=== PATIENT | male | born 1970 | race Caucasian/White ===

== ENCOUNTER 2019-01-22 14:43 | Emergency (ER) | payer OTHER ==
[2019-01-22] MEDS ORDERED: Ketorolac 60 MG/2 ML SDV IM ONE (14:58)
[2019-01-22] MEDS ORDERED: Acetaminophen/HYDROcodone 325-5 MG Tab PO ONE (15:00)
--- NOTE | 2019-01-22 16:44 | EDM.PDOC ---
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 Right hand Pain Score (Numeric/FACES): 8 - Related Data Allergies Allergy/AdvReac Type Severity Reaction Status Date / Time No Known Allergies Allergy Verified 01/22/19 15:18 Home Meds: Home Meds Hydrocodone/Acetaminophen [Hydrocodon-Acetaminophen 5-325] 1 each PO Q6H PRN #6 tablet 01/22/19 [Rx] cephALEXin [Cephalexin] 500 mg PO TID #9 tablet 01/22/19 [Rx] Past Medical History Cardiovascular History: Reports: High Cholesterol, [place], Stents Dermatologic History: Reports: Melanoma Social & Family History - Tobacco Use Smoking Status *Q: Never Smoker Second Hand Smoke Exposure: No - Caffeine Use Caffeine Use: Reports: Coffee - Recreational Drug Use Recreational Drug Use: No ED ROS GENERAL - Review of Systems Review Of Systems: See Below Constitutional: Reports: No Symptoms HEENT: Reports: No Symptoms Respiratory: Reports: No Symptoms Cardiovascular: Reports: No Symptoms Endocrine: Reports: No Symptoms GI/Abdominal: Reports: No Symptoms : Reports: No Symptoms, Urinary Retention Skin: Reports: Wound Neurological: Reports: No Symptoms Psychiatric: Reports: No Symptoms Hematologic/Lymphatic: Reports: No Symptoms Immunologic: Reports: No Symptoms ED EXAM, SKIN/RASH Exam: See Below Exam Limited By: No Limitations General Appearance: Alert, WD/WN Nose: Normal Inspection, Normal Mucosa Throat/Mouth: Normal Inspection, Normal Lips, No Airway Compromise Head: Atraumatic, Normocephalic Skin: Other (XR of R 4th index finger shows a tuft fx, DIP spared, good flex/ext , light touch intact distally, nail intact, on ventral aspect there is an 8 mm vertical FT lac with 3 mm depth that ends/starts at the nail, on the ventral aspect at the PIP there is a 10 mm lac, 1% lido with #30 needle used for digit block at base after clean x 12 with betadine, cleaned x 8 with gauze and NS, 6 ml of lido, complete analgesia achieved, distal horizontal lac closed with 4-0 Ethilon x 2, proximal horizontal lac closed with 3 sutures) Course - Vital Signs Last Recorded V/S: Last Vital Signs Temp 36.4 C 01/22/19 14:50 Pulse 75 01/22/19 14:50 Resp 18 01/22/19 14:50 BP 154/90 H 01/22/19 14:50 Pulse Ox 97 01/22/19 14:50 - Orders/Labs/Meds Orders: Active Orders 24 hr Category Date Time Status Fingers Fourth Digit Rt F8 [CR] Stat Exams 01/22/19 14:59 Ordered Meds: Medications Discontinued Medications Generic Name Dose Route Start Last Admin Trade Name Freq PRN Reason Stop Dose Admin Hydrocodone Bitart/Acetaminophen 1 tab 01/22/19 15:00 01/22/19 15:11 [place] 325-5 Mg PO 01/22/19 15:01 1 tab ONETIME ONE Administration Ketorolac Tromethamine 60 mg 01/22/19 14:58 01/22/19 15:11 Toradol IM 01/22/19 14:59 60 mg ONETIME ONE Administration Departure - Departure Time of Disposition: 16:38 Disposition: Home, Self-Care 01 Condition: Good Clinical Impression: Closed fracture of tuft of distal phalanx of finger, Laceration of finger of left hand - Discharge Information *PRESCRIPTION DRUG MONITORING PROGRAM REVIEWED*: Not Applicable *COPY OF PRESCRIPTION DRUG MONITORING REPORT IN PATIENT JUSTIN: No Prescriptions: cephALEXin [Cephalexin] 500 mg PO TID #9 tablet Hydrocodone/Acetaminophen [Hydrocodon-Acetaminophen 5-325] 1 each PO Q6H PRN #6 tablet PRN Reason: Pain Instructions: Finger Fracture, Adult, Laceration Care, Adult Referrals: PCP,None [Primary Care Provider] - Forms: ED Department Discharge Additional Instructions: Keep clean and dry and covered with a dressing. Use a fingerguard when out of bed for 3-4 weeks. After one week, flex and extend the joint several times a day to keep the finger from getting stiff. To decrease risk of infection, take cephalexin 500 mg 1 tab 3 times a day for 2 days. For pain, take ibuprofen 200 mg 3 tabs 4 times a day for 2 days, longer if needed. For pain, as needed, take hydroxycodone with acetaminophen 5/325 mg 1 tab every 6 hours as needed. See a physician the same day for any increase in redness, swelling, pain, warmth , fever or drainage. See your physician in 7 days to remove sutures. Return to work in 2 days. - My Orders Last 24 Hours: My Active Orders 01/22/19 14:59 Fingers Fourth Digit Rt F8 [CR] Stat - Assessment/Plan Last 24 Hours: My Active Orders 01/22/19 14:59 Fingers Fourth Digit Rt F8 [CR] Stat
== END 2019-01-22 17:00 | disposition home or self-care (01) ==
LOC: FB.ED 14:43
DX: S62.634A Displaced fracture of distal phalanx of right ring finger, initial encounter for closed fracture (principal); S61.214A Laceration without foreign body of right ring finger without damage to nail, initial encounter; I25.2 Old myocardial infarction; Z95.5 Presence of coronary angioplasty implant and graft; W23.0XXA Caught, crushed, jammed, or pinched between moving objects, initial encounter
CPT/HCPCS: 12001; 73140-F8; 96372; 99283-25; A9270-GY; J1885